=== PATIENT | male | born 1950 | race Caucasian/White ===

== ENCOUNTER → 2021-07-04 | Day surgery (SDC) | payer MEDICARE ==
[~2021-07-04] MED LIST: BUPIVACAINE HCL 0.5% INJ 30 ML VIAL INJ ONE; CHLORTHALIDONE25 MG PO; CLONIDINE HCL0.3 MG PO; CLOPIDOGREL75 MG PO; COMTAN200 MG PO; FENTANYL CITRATE/PF 100MCG/2 ML INJ ONE; FUROSEMIDE40 MG PO; GLIPIZIDE5 MG PO; IOPAMIDOL 300MG/ML 50ML INFUS..BTL IV ONE; LATANOPROST2.5 ML OU; LEVEMIR FL100 UNIT/1 SC; METFORMIN HCL500 MG PO; METOPROLOL TAR100 MG PO; MIDAZOLAM HCL 2 MG/2 ML VIAL ONE; NEURONTIN300 MG PO; NIFEDIPINE10 MG PO; NITROGLYCERIN0.4 MG SL; SIMVASTATIN40 MG PO; TRIAMCINOLONE ACET 40 MG/ML VIAL ONE; ULTRAM50 MG PO
[2021-07-04 07:55] VITALS: BP 124/80
== END | disposition home or self-care (01) ==
LOC: OR 05:26
PROVIDERS: ATTEND Specialist
DX: M16.11 Unilateral primary osteoarthritis, right hip (principal); G47.33 Obstructive sleep apnea (adult) (pediatric); I44.0 Atrioventricular block, first degree; E11.9 Type 2 diabetes mellitus without complications; K21.9 Gastro-esophageal reflux disease without esophagitis; K28.9 Gastrojejunal ulcer, unspecified as acute or chronic, without hemorrhage or perforation; I10 Essential (primary) hypertension; E78.5 Hyperlipidemia, unspecified; Z20.822 Contact with and (suspected) exposure to COVID-19; Z79.02 Long term (current) use of antithrombotics/antiplatelets; Z79.4 Long term (current) use of insulin; Z68.38 Body mass index [BMI] 38.0-38.9, adult
CPT/HCPCS: 20610; 36415; 77002; 82948; 93005; J2250; J3010; J3301; Q9967; U0002